=== PATIENT | male | born 1985 | race Caucasian/White ===

== ENCOUNTER 2024-06-25 19:29 | Outpatient (REF) | payer MEDICAID, SELFPAY ==
--- NOTE | ~2024-06-25 | MR_ITS ---
CLINICAL HISTORY: RADICULOPATHY MR Lumbar Spine WO Contrast COMPARISON: None FINDINGS: Transitional spine with lumbarization of S1. No acute fracture. Vertebrae are normally aligned. The conus medullaris terminates at the L1-L2 level and appears normal. Unremarkable soft tissues. T12-L1: No disc herniation. No significant stenosis. L1-L2: No disc herniation. No significant stenosis. L2-L3: Disc desiccation, mild disc space narrowing, diffuse disc bulge, and bilateral facet and ligamentum flavum hypertrophy. Mild spinal canal stenosis and mild bilateral neuroforaminal stenoses. L3-L4: Mild diffuse disc bulge, anterior midline annular fissure, and mild bilateral facet and ligamentum flavum hypertrophy. Mild spinal canal stenosis and mild bilateral neuroforaminal stenoses. L4-L5: Mild diffuse disc bulge, anterior midline annular fissure, and bilateral facet and ligamentum flavum hypertrophy. Mild spinal canal stenosis and mild bilateral neuroforaminal stenoses. L5-S1: Disc desiccation, disc space narrowing, posterior central and bilateral subarticular zone disc extrusion, and bilateral facet hypertrophy. [id number] spinal canal stenosis, left worse than right lateral recess effacement, and [id number] right and moderate left neuroforaminal stenoses. IMPRESSION: Multilevel degenerative changes. No nerve root impingement. This document has been electronically signed by: Dung Gutierrez MD on 06/25/2024 21:18:22
== END 2024-06-25 19:30 | disposition home or self-care (01) ==
LOC: HO.MRI 19:29
PROVIDERS: PCP Internal Medicine; Visit Provider Internal Medicine
DX: M54.16 Radiculopathy, lumbar region (principal)
CPT/HCPCS: 72148

== ENCOUNTER → 2024-06-25 19:45 | Outpatient (BNV) | payer MEDICAID, SELFPAY | PROVIDERS: PCP Internal Medicine; Visit Provider Radiology Diagnostic Radiology | DX: M51.369 Other intervertebral disc degeneration, lumbar region without mention of lumbar back pain or lower extremity pain (principal) | CPT/HCPCS: 72148 ==

== ENCOUNTER 2024-07-25 10:42 | Outpatient (AMB) | payer MEDICAID, SELFPAY ==
[2024-07-25 10:47] VITALS: BMI 22.6
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
== END 2024-07-25 11:15 | disposition home or self-care (01) ==
LOC: HO.HNS 10:42
PROVIDERS: PCP Internal Medicine; Referring Provider Internal Medicine; Visit Provider Physician Assistant
DX: M51.26 Other intervertebral disc displacement, lumbar region (principal)
CPT/HCPCS: 99204

== ENCOUNTER → 2024-07-25 10:42 | Outpatient (BNVA) | payer MEDICAID, SELFPAY | PROVIDERS: PCP Internal Medicine; Referring Provider Internal Medicine; Visit Provider Physician Assistant | DX: M51.26 Other intervertebral disc displacement, lumbar region (principal) | CPT/HCPCS: 99212 ==